=== PATIENT | male | born 1985 | race African-American/Black ===

== ENCOUNTER 2020-01-28 07:24 | Emergency (ER) | payer OTHER ==
[~2020-01-28] VITALS: Ht 182.9 cm; Wt 77.1 kg
== END 2020-01-28 09:44 | disposition home or self-care (01) ==
LOC: ER 07:24
DX: S01.121A Laceration with foreign body of right eyelid and periocular area, initial encounter (principal); S01.82XA Laceration with foreign body of other part of head, initial encounter; Y04.2XXA Assault by strike against or bumped into by another person, initial encounter; Y93.89 Activity, other specified; Y92.480 Sidewalk as the place of occurrence of the external cause; Y99.8 Other external cause status